=== PATIENT | male | born 1990 | race Asian ===

== ENCOUNTER 2023-04-23 09:06 | Outpatient (REF) | payer OTHER, SELFPAY ==
[2023-04-23 10:00] LABS: MANUAL DIFF FLAG NO
[2023-04-23 10:09] LABS: Basophils Percent Auto 0.4 % (0-2); Eosinophils Absolute Auto 0.2 X10*3/uL (0.0-0.4); Hematocrit 44.7 % (42.0-52.0); Hemoglobin 15.5 g/dl (14.0-18.0); Imm Gran Abs Auto 0.04 X10*3/uL (0.00-0.03); Imm Gran Pct Auto 0.5 % (0.0-0.4); Lymphocytes Absolute Auto 2.6 X10*3/uL (1.2-4.9); Lymphocytes Percent Auto 32.5 % (20-40); Mean Corpuscular HGB Conc 34.7 g/dl (31.0-36.0); Mean Corpuscular Hemoglobin 29.3 pg (27.0-33.0); Mean Corpuscular Volume 84.5 fL (80.0-98.0); Mean Platelet Volume 10.3 fL (9.4-12.4); Monocytes Absolute Auto 0.5 X10*3/uL (0.1-1.2); Monocytes Percent Auto 6.6 % (2-11); Neutrophils Absolute Auto 4.7 x10*3/uL (2.0-8.3); Platelet Count 217 X10*3/uL (160-400); Red Blood Count 5.29 X10*6/uL (4.60-5.80); Red Cell Distribution Width 12.8 % (11.0-16.0); White Blood Count 8.1 X10*3/uL (4.8-10.8)
[2023-04-23 10:52] LABS: Estimated Average Glucose 108 mg/dL; Hemoglobin A1C 148.0173 umol/L; Hemoglobin A1c % 5.4 %
[2023-04-23 11:09] LABS: Alanine Aminotransferase 31 U/L (0-40); Alkaline Phosphatase 44 U/L (39-117); Anion Gap 14 (12-20); Aspartate Amino Transferase 20 U/L (5-37); Bilirubin Total 0.5 mg/dL (0.0-1.0); Blood Urea Nitrogen 12 mg/dL (9-16); Calcium 9.4 mg/dL (8.4-10.2); Carbon Dioxide 26 mmol/L (22-29); Chloride 105 mmol/L (96-108); Cholesterol 217 mg/dL; Estimated Glomerular Filt Rate > 60; Glucose Random 100 mg/dL (60-115); HDL Cholesterol 35 mg/dL; LDL Cholesterol Calculated 130 mg/dl; Sodium 141 mmol/L (135-145); Triglycerides 262 mg/dL
[2023-04-23 11:25] LABS: TSH reflex Free T4 1.25 uIU/mL (0.32-4.0); Vitamin D 25-OH Total 12.5 ng/mL (>30)
[2023-04-23 11:36] LABS: Folate 12.6 ng/mL (> or = 4.0); Vitamin B12 252 pg/mL (200-900)
[2023-04-28 17:49] LABS: Vitamin A 49 mcg/dL (38-98)
[2023-04-30 14:39] LABS: Vitamin C 0.3 mg/dL (0.2-2.1)
== END 2023-04-23 09:07 | disposition home or self-care (01) ==
LOC: HO.LAB 09:06
PROVIDERS: PCP Internal Medicine Gastroenterology; Visit Provider Internal Medicine Gastroenterology
DX: E46 Unspecified protein-calorie malnutrition (principal); E53.8 Deficiency of other specified B group vitamins; L72.3 Sebaceous cyst; K75.81 Nonalcoholic steatohepatitis (NASH); Z83.3 Family history of diabetes mellitus
CPT/HCPCS: 36415; 80053; 80061; 82180; 82306; 82607; 82746; 83036; 84443; 84590; 84630; 85025